=== PATIENT | male | born 1965 | race Caucasian/White ===

== ENCOUNTER 2016-09-26 23:38 | Emergency (ER) | payer OTHER ==
[2016-09-26 23:47] VITALS: BP 174/77; PULSE 98; RESP 20; O2SAT 97
--- NOTE | 2016-09-26 23:57 | ED.REPORT ---
HPI-Abd Pain M 40 and Over Date of Service Sep 26, 2016 ED Provider: Dr. Al Baum M.D. A 51 year old male with a history of hepatitis C presents to the ED with bilateral groin pain onset three days ago. The patient also reports dysuria, difficulty urinating, and testicle pain. He denies other symptoms. The patient used Pyridium today, with no relief. He also admits to using methamphetamines today. Nursing Notes Stated Complaint: GROIN PAIN Chief Complaint: Male Abdominal Pain Nursing Notes Reviewed: Yes Allergies: Uncoded Allergies: NKDA (Allergy, Unknown, 09/26/16) Scheduled Doxycycline Monohyd (Doxycycline Monohyd) 100 Mg Tablet 100 MG PO BID Metronidazole (Flagyl) 500 Mg Tablet 500 MG PO Q8H Scheduled PRN Ibuprofen (Ibuprofen) 600 Mg Tablet 600 MG PO QID PRN PRN For Pain Tramadol (Tramadol) 50 Mg Tablet 100 MG PO Q6H PRN PRN For Pain General Time Seen by MD: 23:57 Chief Complaint Other (Bilateral inguinal pain) Hx Obtained From: Patient Arrived By: Walk-in Sudden in Onset?: No Onset Occurred: 3 days ago Symptom Duration: Since onset Progression since Onset: Gradually worsening Location: : Diffuse (Bilateral groin, testicles) Quality: Painful Severity: Current: Moderate Severity: Maximum: Moderate Associated with: Reports: Dysuria, Denies: Fever Pertinent Negative: Relieved by nothing Recent Healthcare: No recent doctor visit Past Medical History Past Medical History Hepatitis C Past Surgical History None reported Smoking History Unknown if Ever Smoker Social History Drug Use: Meth Other Social History: Good social support Ambulatory Status Independent Review of Systems Review of Systems Note: + Trouble urinating, bilateral inguinal pain Constitutional: Denies: Fever Respiratory: Denies: Non-productive cough, Shortness of breath GI: Denies: Diarrhea, Vomiting Male: Reports Dysuria, Reports Testicular pain Complete sys rev & neg: except as marked. Physical Exam Physical Exam Notes: Initial Vital Signs Vital Signs (First) Date Time Temp Pulse Resp B/P Pulse Ox O2 Delivery O2 Flow Rate FiO2 09/26/16 23:47 36.5 98 20 174/77 97 Room Air Initial VS: Reviewed Head / Eyes: Atraumatic, Normocephalic ENT: Conjunctiva normal, No scleral icterus Neck: Supple, Full range of motion Skin: Warm, Dry Neurologic: Alert, Oriented, Nonfocal Psychiatric: Mood/affect normal, Behavior normal, Normal thought content General/Constitutional: Awake, Alert Respiratory / Chest: Breath sounds NL, Breath sounds = bilat, No respiratory distress Cardiovascular: Heart rate NL, Regular rhythm, Heart sounds NL Abdomen: Atraumatic Tenderness/Guarding/Rebound: Positive: Tender diffuse Bowel Sounds / Distention: Positive: Distention moderate Easily reducible umbilical hernia Male Genitourinary: Atraumatic, Testes NL, No hernia Penis: Positive: Discharge present clear, Discharge present thin, Erythema present No adenopathy Urine heavily stained with pyridium Interpretation & Diagnostics URINE DIPSTICK: 1.020 sp gravity 5 pH Positive Nitrite 50mg/dl Glucose 4mg/dl Urobilinogen ++ Bilirubin Trace Blood Otherwise Negative Lab Results Interpretation Result Diagram: 09/27/16 0100 09/27/16 0100 Test 09/27/16 00:15 09/27/16 00:30 09/27/16 01:00 Hold Urine Received (Received) White Blood Count 7.9th/mm3 (3.8-10.1) Red Blood Count 4.65mil/mm3 (4.40-5.80) Hemoglobin 14.4g/dL (13.8-17.2) Hematocrit 41.0% (41.0-50.0) Mean Corpuscular Volume 88.2fL (81-100) Mean Corpuscular Hemoglobin 31.0pg (27.0-35.0) Mean Corpuscular Hemoglobin Concent 35.1% (32.0-37.0) Red Cell Distribution Width 13.8% (12.3-15.4) Platelet Count 97bil/L (150-400) Neutrophils (%) (Auto) 56.5% (40-74) Lymphocytes (%) (Auto) 23.5% (14-46) Monocytes (%) (Auto) 15.4% (4-12) Eosinophils (%) (Auto) 3.9% (0-5) Basophils (%) (Auto) 0.4% (0-3) Prothrombin Time 12.0sec (8.1-12.5) Prothromb Time International Ratio 1.12ratio Sodium Level 141mEq/L (134-144) Potassium Level 3.8mEq/L (3.5-5.2) Chloride Level 104mEq/L (97-108) Carbon Dioxide Level 21mmol/L (18-29) Blood Urea Nitrogen 15mg/dL (6-24) Creatinine 0.92mg/dL (0.76-1.27) Estimat Glomerular Filtration Rate 93mL/min (>59) Glucose Level 149mg/dL (60-99) Lactic Acid Level 2.0mmol/L (0.4-2.0) Calcium Level 9.4mg/dL (8.5-10.1) Magnesium Level 2.2mg/dL (1.6-2.6) Total Bilirubin 0.9mg/dL (0.0-1.2) Aspartate Amino Transf (AST/SGOT) 33U/L (0-50) Alanine Aminotransferase (ALT/SGPT) 41U/L (0-44) Alkaline Phosphatase 75U/L (25-150) Total Protein 7.1g/dL (6.4-8.4) Albumin 4.1g/dL (3.4-5.0) Lipase 61U/L (13-60) CT Abd / Pelvis Interpretation CONCLUSION: Cirrhosis of the liver with splenomegaly and possibly a small splenic infarct. Cholelithiasis without CT evidence of cholecystitis. Tiny umbilical hernia containing some fluid but no bowel. Transmitted to ED by Juan Nair M.D. at 09/27/2016 - 3:00:05 PM PDT Study type: Abdominal CT IV contrast Interpretation / Wet Read by: Interpret - Radiologist Re-Eval/Medical Decision Med Decision/Clinical Course 51-year-old presents with urethral discharge, dysuria, and testicular pain. CT abdomen negative. No evidence of torsion. He has nongonococcal urethritis apparent and mild bilateral testicular tenderness. Treated empirically for epididymitis and urethritis with Rocephin and doxycycline and Flagyl. Time of Eval: 03:15 Patient Status: Condition improved Re-Evaluation/Progress Note: Discussed with patient CT and lab results, diagnosis, and plan for discharge. Follow-up and return to the ER instructions given. Patient agrees with plan for care and all questions were addressed. Counseled Regarding: Diagnosis, Lab results, Need for follow-up, When/why to return to ED Discharge & Departure Primary Impression: Urethritis, nonspecific Additional Impressions: Epididymitis Methamphetamine abuse Umbilical hernia Disposition: Home Vital Signs - All Vital Signs Date Time Temp Pulse Resp B/P Pulse Ox O2 Delivery O2 Flow Rate FiO2 09/27/16 03:47 36.5 88 18 148/79 98 Room Air 09/26/16 23:47 36.5 98 20 174/77 97 Room Air )( All Prior VS Reviewed: Yes Condition: Improved Patient Instructions: Epididymitis (ED), Nonspecific Urethritis in Men (ED) Additional Instructions: Ibuprofen regular dosing four times daily for pain. Tramadol four times daily if needed additionally for pain Doxycycline twice daily. Flagyl three times daily. Follow-up with your doctor in the office. Return if any immediate issues. Referrals: [facility] Scribe Attestation Portions of this note were transcribed by Julia Scanlon. I, Dr. Baum, personally performed the history, physical exam, and medical decision-making; I reviewed and confirmed the accuracy of the information in the transcribed note. Signed by: Paula Babcock, 09/27/2016, 04:35 copies to: [facility] Al Baum MD Sep 26, 2016 23:57 JULIA SCANLON Sep 27, 2016 00:30
[2016-09-27] MEDS ORDERED: 0.9% Sodium Chloride 1,000 ML IV ONE (00:31)
[2016-09-27] MEDS ORDERED: Ondansetron 2 mg/mL 2 mL Inj IVPUSH ONE (00:35)
[2016-09-27] MEDS ORDERED: cefTRIAXone Inj 2,000 MG in Dextrose 5% Minibag Plus 50 ML IV ONE (00:35)
[2016-09-27 01:14] LABS: BASOPHILS % (AUTO) 0.4 % (0-3); EOSINOPHILS % (AUTO) 3.9 % (0-5); MONOCYTES % (AUTO) 15.4 % (4-12); Mean Corpuscular Volume 88.2 fL (81-100); NEUTROPHILS % (AUTO) 56.5 % (40-74); Platelet Count 97 bil/L (150-400)
[2016-09-27 01:35] LABS: INR 1.12 ratio
[2016-09-27 01:43] LABS: Magnesium 2.2 mg/dL (1.6-2.6)
[2016-09-27] MEDS ORDERED: METR500T PO (03:30)
[2016-09-27] MEDS ORDERED: IBUP-1827 PO (03:30)
[2016-09-27] MEDS ORDERED: TRAM50TA2 PO (03:30)
[2016-09-27] MEDS ORDERED: DOXY-232 PO (03:30)
[2016-09-27 03:47] VITALS: BP 148/79; PULSE 88; RESP 18; O2SAT 98
[2016-09-27 07:49] LABS: APPEARANCE,URINE CLEAR (CLEAR,HAZY); COLOR,URINE ORANGE (YELLOW)
--- NOTE | 2016-09-27 08:45 | DRSVH ---
PROCEDURE: CT ABDOMEN AND PELVIS WITH CONTRAST ([id number]) INDICATIONS: abdo pain TECHNIQUE: After the administration of intravenous contrast, 5 mm thick sections acquired from the diaphragm to the symphysis. 5 mm coronal and sagittal reformats were acquired. For radiation dose reduction, the following was used: automated exposure control, adjustment of mA and/or kV according to patient siz e. COMPARISON: [facility], [place], ABDOMEN COMPLETE, 11/20/2014, 8:19. [facility], [place], ABDOMEN CO MPLETE, 05/31/2012, 10:52. [facility], [place], ABDOMEN/PELVIS WITH CONTRAST, 03/01/2012, 2:51. [facility], [place], ABDOMEN/PELVIS WITH CONTRAST, 05/07/2015, 7:01. FINDINGS: Image quality: Excellent. ABDOMEN: Lung bases: Lung bases are clear. Heart size is normal. Solid organs: Liver demonstrates nodular contour consistent with cirrhosis. Spleen is enlarged, whic h is likely secondary to portal hypertension. There is a 1.5 x 2.0 cm peripheral hypodensity in the anterior aspect of spleen. A couple of tiny hypodensities are seen in spleen. Gallbladder is distende d. There is a gallstone. Biliary system is non dilated. Pancreas enhances normally. No adrenal nod ules. Heterotopic left kidney. Kidneys demonstrate normal size and enhancement, without hydronephros is. Peritoneum and bowel: Bowel loops demonstrate normal wall thickness and caliber. No free fluid or a ir. Nodes and vessels: The study prominent periportal or mesenteric lymph nodes measuring up to 1 cm in s hort axis. Aorta and inferior vena cava are normal in size. Miscellaneous: Small umbilical hernia containing small amount fluid and fat. PELVIS: Genitourinary: Bladder wall thickness is normal. Miscellaneous: No inguinal hernias or adenopathy. Fluid in the scrotum is consistent with hydrocele . Bones: No suspicious bony lesions. No vertebral body compression fractures. IMPRESSION: 1. Cirrhosis. 2. Cholelithiasis. Gallbladder is distended. No gallbladder wall thickening or pericholecystic fluid. 3. Enlarged spleen likely secondary to portal hypertension. There are several small indeterminate hyp odensities in spleen. Ultrasound may be helpful for further evaluation. 4. Ectopic left kidney. 5. Slightly prominent periportal and mesenteric lymph nodes are likely reactive. 6. Small umbilical hernia containing small amount of fluid and fat. No significant discrepancy with the hourly shift radiology preliminary report. Dictated by: Shalom Cheng M.D. on 09/27/2016 at 8:30 Approved by: Shalom Cheng M.D. on 09/27/2016 at 8:43
== END 2016-09-27 03:50 | disposition home or self-care (01) ==
LOC: SED 23:38
DX: N34.2 Other urethritis (principal); N45.1 Epididymitis; K42.9 Umbilical hernia without obstruction or gangrene; F15.20 Other stimulant dependence, uncomplicated; Z86.19 Personal history of other infectious and parasitic diseases
CPT/HCPCS: 36415; 74177; 80053; 81000; 83605; 83690; 83735; 85025; 85610; 87070; 87491; 87591; 96361; 96365; 96375; 99285; J0696; J1885; J2405; J7030; Q9967